=== PATIENT | female | born 1975 | race African-American/Black ===

== ENCOUNTER 2020-09-27 20:09 | Emergency (ER) | payer SELFPAY ==
[~2020-09-27] VITALS: Ht 157.5 cm; Wt 57.0 kg
[2020-09-27] MEDS ORDERED: SODIUM CHLORIDE 0.9% 1,000 ML IV ONE (21:30)
[2020-09-27 23:14] LABS: BASOPHILS % 0.1 % (0.0-2.0); HEMATOCRIT. 27.3 % (36.0-48.0); HEMOGLOBIN. 8.2 g/dL (12.0-16.0); LYMPHOCYTES % 13.2 % (20.0-50.0); MEAN CORPUSCULAR HEMOGLOBIN 18.6 pg (28.0-32.0); MEAN CORPUSCULAR VOLUME 62.4 fL (81.0-99.0); MEAN PLATELET VOLUME 8.8 fl (7.4-10.4); MONOCYTES % 3.2 % (2.0-8.0); NEUTROPHILS % 83.5 % (40.0-76.0); PLATELET 212 x1000/uL (130-400); RED BLOOD CELL COUNT 4.38 mill/uL (4.2-5.4); RED CELL DISTRIBUTION WIDTH 22.3 % (11.6-14.6)
[2020-09-27 23:21] LABS: CHLORIDE 110 mEq/L (98-107)
[2020-09-27 23:28] LABS: ETHANOL BLOOD < 10 mg/dL
[2020-09-27 23:44] LABS: PLATELET ESTIMATE NORMAL
[2020-09-28] MEDS ORDERED: KEPP500 MT (00:16)
[2020-09-28] MEDS ORDERED: LEVETIRACETAM 500MG TABLET PO ONE (00:30)
[2020-09-28 01:37] VITALS: BP 110/80
== END 2020-09-28 01:38 | disposition home or self-care (01) ==
LOC: ER 20:09
DX: E86.0 Dehydration (principal)
CPT/HCPCS: 36415; 71045; 80053; 80320; 82962; 85025; 96360; 96361; 99284; J7030; G0480